=== PATIENT | female | born 1970 | race Caucasian/White ===

== ENCOUNTER 2022-04-20 08:00 | Day surgery (SDC) | payer OTHER ==
[2022-04-18 13:30] VITALS: BMI 21.4
[2022-04-20 09:59] VITALS: RESP 16; TEMP 97.6
[2022-04-20 10:21] VITALS: BP 118/64; PULSE 64
== END 2022-04-20 10:35 | disposition home or self-care (01) ==
LOC: FASU-ENDO 08:00
PROVIDERS: ATTEND Internal Medicine Gastroenterology
PROC: 0DBL8ZX Excision of Transverse Colon, Via Natural or Artificial Opening Endoscopic, Diagnostic (ICD-10-PCS; 2022-04-20)
PROC: 0DBP8ZX Excision of Rectum, Via Natural or Artificial Opening Endoscopic, Diagnostic (ICD-10-PCS; 2022-04-20)
PROC: 0DBM8ZX Excision of Descending Colon, Via Natural or Artificial Opening Endoscopic, Diagnostic (ICD-10-PCS; principal; 2022-04-20 09:21)
DX: Z12.11 Encounter for screening for malignant neoplasm of colon (principal); D12.4 Benign neoplasm of descending colon; D12.3 Benign neoplasm of transverse colon; D12.8 Benign neoplasm of rectum
CPT/HCPCS: 88305-TC

== ENCOUNTER 2023-08-07 17:52 | Emergency (ER) | payer OTHER ==
[2023-08-07 18:08] VITALS: BP 152/91; PULSE 90; RESP 16; TEMP 98.3; BMI 23.1
[2023-08-07 19:48] LABS: HEMATOCRIT 36.8 % (32.4-45.2); HEMOGLOBIN 12.4 G/dL (10.7-15.3); MCH 32.3 pg (25.7-33.7); MCHC 33.8 g/dl (32.0-36.0); MEAN CELL VOLUME 95.6 fl (80-96); MEAN PLT VOLUME 8.8 fl (7.5-11.1); PLATELET COUNT 192.8 10^3/uL (134-434); RBC 3.85 10^6/uL (3.60-5.2); RDW 13.6 % (11.6-15.6); WHITE BLOOD COUNT 6.9 10^3/uL (4.0-10.8)
[2023-08-07 20:09] LABS: ALBUMIN 4.3 g/dl (3.4-5.0); BILIRUBIN,TOTAL 0.4 mg/dl (0.2-1); CALCIUM 9.4 mg/dl (8.5-10.1); POTASSIUM 3.8 mmol/L (3.5-5.1)
[2023-08-07 21:25] LABS: PLATELET ESTIMATE ADEQUATE
== END 2023-08-07 20:53 | disposition home or self-care (01) ==
LOC: FER 17:52
DX: R07.89 Other chest pain (principal)
CPT/HCPCS: 36415; 71046-TC-FY; 80053; 84484; 85027; 93005; 99285-25